=== PATIENT | female | born 1970 | race Caucasian/White ===

== ENCOUNTER 2016-10-04 07:05 | Day surgery (SDC) | payer OTHER ==
[~2016-10-04] VITALS: Ht 154.9 cm; Wt 80.3 kg
[2016-10-04] MEDS ORDERED: PAXIL20 MG PO (08:04)
[2016-10-04] MEDS ORDERED: LIDOCAINE 2% 1000 MG/50 ML VIAL INJ ONE (08:17)
== END 2016-10-04 09:52 | disposition home or self-care (01) ==
LOC: MDS 07:05 → MMU 07:16 → MDS 09:52
PROVIDERS: ATTEND Internal Medicine Gastroenterology
DX: B19.20 Unspecified viral hepatitis C without hepatic coma (principal); E66.9 Obesity, unspecified
CPT/HCPCS: 36415; 47000; 76942; 80076; 85610; 85730; 87522; J2001; Q0092